=== PATIENT | male | born 1945 | race Caucasian/White ===

== ENCOUNTER → 2019-08-22 | Outpatient (CLI) | payer MEDICARE | LOC: M LABSMTC 10:41 | PROVIDERS: ATTEND Family Medicine | DX: Z11.59 Encounter for screening for other viral diseases (principal); Z20.828 Contact with and (suspected) exposure to other viral communicable diseases ==

== ENCOUNTER → 2023-03-13 | Outpatient (REF) | payer MEDICARE ==
[~2023-03-13] MED LIST: ASPI81CH33 PO; ATOR1TAB21 PO; ATOR80TA59 PO; CEFD300CAP PO; PROBCAP14 PO; TAMS1CAP17 PO; ZOLO100T PO
[2023-03-13 17:19] LABS: APPEARANCE, URINE CLEAR (CLEAR); BACTERIA, URINE AUTO NEGATIVE (NEGATIVE); BILIRUBIN, URINE AUTO NEGATIVE (NEGATIVE); BLOOD, URINE BLOOD NEGATIVE (NEGATIVE); COLOR, URINE YELLOW (YELLOW); GLUCOSE, URINE (UA) AUTO NEGATIVE (NEGATIVE); KETONE, URINE AUTO TRACE mg/dL (NEGATIVE); LEUKOCYTE ESTERASE, URINE AUTO 1+ (NEGATIVE); MUCUS, URINE SMALL (NEGATIVE); NITRITE, URINE AUTO NEGATIVE (NEGATIVE); PROTEIN, URINE AUTO NEGATIVE (NEGATIVE); RBC, URINE AUTO 2 /HPF (0-3); SPECIFIC GRAVITY URINE AUTO 1.018 (1.002-1.035); SQUAMOUS EPITHELIAL CELL UR AU 0 /HPF (0-6); WBC, URINE AUTO 2 /HPF (0-3)
== END ==
LOC: M SMT 15:53
PROVIDERS: ATTEND Nurse Practitioner Family
DX: R31.0 Gross hematuria (principal)

== ENCOUNTER → 2023-04-08 | Outpatient (REF) | payer MEDICARE | LOC: M LABSMT 15:41 | PROVIDERS: ATTEND Urology | DX: R31.0 Gross hematuria (principal) ==

== ENCOUNTER 2023-04-21 16:45 | Emergency (ER) | payer MEDICARE ==
[~2023-04-21] VITALS: Ht 170.2 cm; Wt 51.2 kg
[2023-04-21 17:44] LABS: BASO # 0.1 10^3/uL (0.0-0.2); BASO % 1.5 % (0.0-1.0); EOS # 0.3 10^3/uL (0.0-0.5); EOS % 6.1 % (0.0-3.0); HEMATOCRIT 37.7 % (42.0-52.0); HEMOGLOBIN 12.2 g/dl (13.5-17.5); LYMPH # 0.9 10^3/uL (1.5-5.0); LYMPH % 20.4 % (24.0-44.0); MEAN CORPUSCULAR HEMOGLOBIN 29.8 pg (27.0-33.0); MEAN CORPUSCULAR HGB CONC 32.4 g/dl (32.0-36.5); MEAN CORPUSCULAR VOLUME 92.2 fl (80.0-96.0); MONO # 1.4 10^3/uL (0.0-0.8); MONO % 30.9 % (2.0-8.0); NEUTROPHILS # 1.8 10^3/uL (1.5-8.5); NEUTROPHILS % 40.2 % (36.0-66.0); RED BLOOD COUNT 4.09 10^6/uL (4.30-6.10); WHITE BLOOD COUNT 4.6 10^3/uL (4.0-10.0)
[2023-04-21] MEDS ORDERED: FINA5TAB2 (17:46)
[2023-04-21] MEDS ORDERED: FLOM0.4C39 PO (17:46)
[2023-04-21] MEDS ORDERED: FLUO20CA22 (17:46)
[2023-04-21] MEDS ORDERED: LOSA25TA13 (17:46)
[2023-04-21 17:49] LABS: PLATELET COUNT, AUTOMATED 88 10^3/uL (150-450)
[2023-04-21 18:15] LABS: BLOOD UREA NITROGEN 18 MG/DL (9-23); CALCIUM LEVEL 7.8 MG/DL (8.3-10.6); CARBON DIOXIDE LEVEL 30 MMOL/L (20-31); CHLORIDE LEVEL 105 MMOL/L (98-107); CREATININE FOR GFR 0.85 MG/DL (0.70-1.30); GLOMERULAR FILTRATION RATE > 60.0 (>42); GLUCOSE, FASTING 93 MG/DL (74-106); POTASSIUM SERUM 3.5 MMOL/L (3.5-5.1); SODIUM LEVEL 140 MMOL/L (136-145)
[2023-04-21] MEDS ORDERED: ISOVUE-370 76% 100ML VIAL As Ordered ONE (19:25)
[2023-04-21] MEDS ORDERED: ASPIRIN 81MG CHEW TABLET PO ONE (19:25)
[2023-04-21 19:31] LABS: INR 1.09; PROTHROMBIN TIME 13.8 SECONDS (12.5-14.5)
[2023-04-21 19:32] LABS: PARTIAL THROMBOPLASTIN TIME 35.3 SECONDS (24.8-34.2)
[2023-04-21 19:43] LABS: CK-MB VALUE MASS 1.4 NG/ML (<3.6)
[2023-04-21 19:44] LABS: MB/CK RELATIVE INDEX 1.52 (< OR =4)
[2023-04-21 22:23] VITALS: O2SAT 97
[2023-04-21 22:40] VITALS: BP 170/84
[2023-04-21] MEDS ORDERED: LOSARTAN 25 MG TAB PO ONE (22:55)
[2023-04-21 22:59] VITALS: TEMP 97.8
[2023-04-21 23:04] VITALS: BP 170/84; O2SAT 96
== END 2023-04-21 23:09 | disposition home or self-care (01) ==
LOC: M ED 16:45 → EDSEX 16:45 → EDBD 16:45 → M ED 23:09
DX: R42 Dizziness and giddiness (principal); Z87.440 Personal history of urinary (tract) infections; Z86.73 Personal history of transient ischemic attack (TIA), and cerebral infarction without residual deficits; H91.90 Unspecified hearing loss, unspecified ear; F17.200 Nicotine dependence, unspecified, uncomplicated; Z79.82 Long term (current) use of aspirin; Z79.899 Other long term (current) drug therapy
CPT/HCPCS: 70450; 70496; 70498; 71045; 72125; 80048; 81001; 82550; 82553; 84484; 85025; 85049; 85055; 85610; 85730; 87040; 87486; 87581; 87633; 87798; 93005; 93041; 94760; 99285; Q9967

== ENCOUNTER 2024-01-06 12:03 | Day surgery (SDC) | payer MEDICARE ==
[~2024-01-06] VITALS: Ht 170.2 cm; Wt 60.8 kg
[~2024-01-06 12:03] MED LIST changes: +ALFU10TA23 PO; +FINA5TAB2 PO; +FLOM0.4C39 PO; +FLUO-365 PO; +LOSA25TA13 PO; +LOSA50TA28 PO; +METF500T13 PO; +METO1TAB87 PO; +MIRT1TAB PO; +PHENYLEPHRINE 10% OPHTH SOL 5ML OD PRN; +SERT50TA29 PO; +TREL1AER INH
[2024-01-06] MEDS: LIDOCAINE 3.5 % 1ML OPHTH TOPICAL GEL OU ONE (12:20)
[2024-01-06] MEDS: TROPICAMIDE 1% OPHTH SOLN 15ML OD SCH (12:20)
[2024-01-06] MEDS: ATROPINE SULFATE 1% OPHTH SOLN 2ML BTL OD SCH (12:20)
[2024-01-06] MEDS: OFLOXACIN 0.3 % (OCUFLOX) OPTH SOL 5ML OD ONE (12:20)
[2024-01-06] MEDS: PHENYLEPHRINE 2.5% OPHTH SOL 2ML OD SCH (12:20)
[2024-01-06] MEDS ORDERED: fentaNYL 100 MCG/2 ML INJECTION As Ordered ONE (12:53)
[2024-01-06] MEDS ORDERED: MIDAZOLAM INJ 2MG/2ML VIAL As Ordered ONE (12:53)
[2024-01-06] MEDS: LIDOCAINE 1% SDV 5ML VIAL As Ordered ONE (12:56)
[2024-01-06] MEDS: BSS IRRIG/VANCO(10MG)/TOBRA(5MG)/EPINEPH(1:1000-0.5CC)500ML BAG-ORONLY As Ordered ONE (12:56)
[2024-01-06] MEDS: CEFUROXIME 1MG/0.1ML INTRACAMERAL INJ As Ordered ONE (12:57)
[2024-01-06 13:10] VITALS: BP 151/84; TEMP 97.6; O2SAT 96
== END 2024-01-06 13:35 | disposition home or self-care (01) ==
LOC: M SDC 12:03
PROVIDERS: ATTEND Ophthalmology
DX: H25.11 Age-related nuclear cataract, right eye (principal); H21.81 Floppy iris syndrome; I25.10 Atherosclerotic heart disease of native coronary artery without angina pectoris; I10 Essential (primary) hypertension; Z86.73 Personal history of transient ischemic attack (TIA), and cerebral infarction without residual deficits; J44.9 Chronic obstructive pulmonary disease, unspecified; R32 Unspecified urinary incontinence; F32.A Depression, unspecified; E78.00 Pure hypercholesterolemia, unspecified; Z95.1 Presence of aortocoronary bypass graft; Z79.899 Other long term (current) drug therapy; Z79.82 Long term (current) use of aspirin; Z79.84 Long term (current) use of oral hypoglycemic drugs; Z91.51 Personal history of suicidal behavior; Z87.891 Personal history of nicotine dependence
CPT/HCPCS: 66982; J0697; J2250; J3010; V2632

== ENCOUNTER 2024-02-17 11:23 | Day surgery (SDC) | payer MEDICARE ==
[~2024-02-17] VITALS: Ht 170.2 cm; Wt 61.9 kg
[~2024-02-17 11:23] MED LIST changes: -PHENYLEPHRINE 10% OPHTH SOL 5ML OD PRN; +PHENYLEPHRINE 10% OPHTH SOL 5ML OS PRN
[2024-02-17] MEDS: ATROPINE SULFATE 1% OPHTH SOLN 2ML BTL OS SCH (13:03)
[2024-02-17] MEDS: TROPICAMIDE 1% OPHTH SOLN 15ML OS SCH (13:03)
[2024-02-17] MEDS: LIDOCAINE 3.5 % 1ML OPHTH TOPICAL GEL OU ONE (13:03)
[2024-02-17] MEDS: PHENYLEPHRINE 2.5% OPHTH SOL 2ML OS SCH (13:03)
[2024-02-17] MEDS: OFLOXACIN 0.3 % (OCUFLOX) OPTH SOL 5ML OS ONE (13:03)
[2024-02-17] MEDS ORDERED: fentaNYL 100 MCG/2 ML INJECTION As Ordered ONE (13:21)
[2024-02-17] MEDS: BSS IRRIG/VANCO(10MG)/TOBRA(5MG)/EPINEPH(1:1000-0.5CC)500ML BAG-ORONLY As Ordered ONE (13:22)
[2024-02-17] MEDS: CEFUROXIME 1MG/0.1ML INTRACAMERAL INJ As Ordered ONE (13:22)
[2024-02-17] MEDS: LIDOCAINE 1% SDV 5ML VIAL As Ordered ONE (13:22)
[2024-02-17 13:38] VITALS: BP 191/95; TEMP 97.3; O2SAT 98
== END 2024-02-17 14:07 | disposition home or self-care (01) ==
LOC: M SDC 11:23
PROVIDERS: ATTEND Ophthalmology
DX: H25.12 Age-related nuclear cataract, left eye (principal); E11.9 Type 2 diabetes mellitus without complications; I25.10 Atherosclerotic heart disease of native coronary artery without angina pectoris; Z95.5 Presence of coronary angioplasty implant and graft; I69.398 Other sequelae of cerebral infarction; Z87.891 Personal history of nicotine dependence; Z79.899 Other long term (current) drug therapy; Z98.41 Cataract extraction status, right eye
CPT/HCPCS: 66984; J0697; J3010; V2632

== ENCOUNTER 2024-03-28 10:57 | Observation (INO) | payer MEDICARE ==
[~2024-03-28] VITALS: Ht 170.2 cm; Wt 64.2 kg
[~2024-03-28 10:57] MED LIST changes: -PHENYLEPHRINE 10% OPHTH SOL 5ML OS PRN
[2024-03-28] MEDS: LIDOCAINE 2% 5ML JELLY UROJET TOP ONE (11:10)
[2024-03-28 11:28] LABS: HEMATOCRIT 36.6 % (42.0-52.0); HEMOGLOBIN 11.6 g/dl (13.5-17.5); MEAN CORPUSCULAR HEMOGLOBIN 29.1 pg (27.0-33.0); MEAN CORPUSCULAR HGB CONC 31.7 g/dl (32.0-36.5); PLATELET COUNT, AUTOMATED 109 10^3/uL (150-450); RED BLOOD COUNT 3.98 10^6/uL (4.30-6.10); WHITE BLOOD COUNT 10.3 10^3/uL (4.0-10.0)
[2024-03-28 11:42] LABS: VENOUS HCO3 25.6 MMOL/L (23.0-27.0); VENOUS O2 SATURATION 73.6 % (60.0-80.0); VENOUS PARTIAL PRESSURE CO2 45.3 mmHg (38.0-50.0); VENOUS PARTIAL PRESSURE O2 40.9 mmHg (30.0-50.0); VENOUS STANDARD HCO3 24.1 MMOL/L
[2024-03-28] MEDS: NS 500 ML IV ONE (11:50)
[2024-03-28 11:54] LABS: CK-MB VALUE MASS < 1.0 NG/ML (<3.6)
[2024-03-28 11:55] LABS: ETHYL ALCOHOL (ETHANOL) 0.004 % (0.000-0.010)
[2024-03-28 11:56] LABS: SALICYLATE LEVEL < 3.0 MG/DL (<30)
[2024-03-28 11:57] LABS: ALBUMIN 2.3 G/DL (3.2-5.2); ALKALINE PHOSPHATASE 118 U/L (40-129); ALT/SGPT 22 U/L (7.0-40); AST/SGOT 27 U/L (<34); BILIRUBIN,DIRECT 0.4 MG/DL (<0.4); BILIRUBIN,TOTAL 0.9 MG/DL (0.3-1.2); BLOOD UREA NITROGEN 19 MG/DL (9-23); CALCIUM LEVEL 8.3 MG/DL (8.3-10.6); CARBON DIOXIDE LEVEL 27 MMOL/L (20-31); CHLORIDE LEVEL 110 MMOL/L (98-107); CPK CREATINE PHOSPHOKINASE 56 U/L (46-171); GLOMERULAR FILTRATION RATE > 60.0 (>42); GLUCOSE, FASTING 154 MG/DL (74-106); MAGNESIUM LEVEL 1.9 MG/DL (1.8-2.4); MB/CK RELATIVE INDEX 1.78 (< OR =4); POTASSIUM SERUM 3.2 MMOL/L (3.5-5.1); SODIUM LEVEL 142 MMOL/L (136-145); TOTAL PROTEIN 5.7 G/DL (5.7-8.2)
[2024-03-28 11:58] LABS: ATYPICAL LYMPH 1 % (0-5); LYMPHOCYTES 6 % (16-44); MONOCYTES 32 % (0-5); NEUTROPHILS 58 % (28-66); THYROID STIMULATING HORMONE 1.093 uIU/ML (0.55-4.78)
[2024-03-28 11:59] LABS: ANISOCYTOSIS 1+
[2024-03-28 12:00] LABS: HYPOCHROMASIA 1+; PLATELET ESTIMATE DECREASED (NORMAL)
[2024-03-28] MEDS ORDERED: ISOVUE-370 76% 100ML VIAL As Ordered ONE (12:51)
[2024-03-28] MEDS: PIPERACILLIN/TAZOBACTAM SOD 4.5 GM in DEXTROSE 5% (D5W) ADV/MINI-BAG 50 ML IV ONE (13:15)
[2024-03-28 13:22] LABS: CK-MB VALUE MASS < 1.0 NG/ML (<3.6)
[2024-03-28 13:38] LABS: CPK CREATINE PHOSPHOKINASE 53 U/L (46-171); MB/CK RELATIVE INDEX 1.88 (< OR =4)
[2024-03-28] MEDS ORDERED: METO25TA4 PO (14:58)
[2024-03-28] MEDS ORDERED: ECOT81TA5 PO (14:58)
[2024-03-28] MEDS ORDERED: CLOP75TA2 PO (14:58)
[2024-03-28] MEDS ORDERED: HYDR-4571 PO (14:59)
[2024-03-28] MEDS ORDERED: HOME MED LIST COMPLETE! XX SCH (15:00)
[2024-03-28] MEDS ORDERED: DEXTROSE 50% 50ML SYRINGE IV PRN (16:05)
[2024-03-28] MEDS ORDERED: GLUCOSE 4 GM CHEW PO PRN (16:05)
[2024-03-28] MEDS ORDERED: GLUCAGON INJ 1MG VIAL SC PRN (16:05)
[2024-03-28] MEDS: LR 1,000 ML IV ONE (17:43)
[2024-03-28] MEDS: POTASSIUM CHLORIDE 10MEQ SR TABLET PO ONE (17:44)
[2024-03-28] MEDS: INSULIN LISPRO (NovoLOG) PER UNIT SC SCH ×2 (18:35→21:00)
[2024-03-28] MEDS: SYMBICORT 80/4.5MCG INHALER 6GM INH SCH (19:41)
[2024-03-28] MEDS: METOPROLOL TART 25 MG TABLET PO SCH (21:15)
[2024-03-28 21:30] VITALS: BP 157/85; TEMP 98.1; O2SAT 93
[2024-03-28 22:58] VITALS: O2SAT 93
[2024-03-29 04:23] VITALS: BP 137/71; TEMP 97.3; O2SAT 87
[2024-03-29 06:27] LABS: MEAN CORPUSCULAR HEMOGLOBIN 29.7 pg (27.0-33.0); MEAN CORPUSCULAR HGB CONC 32.8 g/dl (32.0-36.5); MEAN CORPUSCULAR VOLUME 90.6 fl (80.0-96.0); PLATELET COUNT, AUTOMATED 120 10^3/uL (150-450); WHITE BLOOD COUNT 8.2 10^3/uL (4.0-10.0)
[2024-03-29 06:29] LABS: BLOOD UREA NITROGEN 15 MG/DL (9-23); CALCIUM LEVEL 8.1 MG/DL (8.3-10.6); CARBON DIOXIDE LEVEL 25 MMOL/L (20-31); CHLORIDE LEVEL 112 MMOL/L (98-107); CREATININE FOR GFR 0.78 MG/DL (0.70-1.30); GLOMERULAR FILTRATION RATE > 60.0 (>42); GLUCOSE, FASTING 110 MG/DL (74-106); HEMOGLOBIN 9.5 g/dl (13.5-17.5); POTASSIUM SERUM 3.7 MMOL/L (3.5-5.1); SODIUM LEVEL 143 MMOL/L (136-145)
[2024-03-29] MEDS: TIOTROPIUM INHALER/CAPSULE (SPIRIVA) INH SCH (07:52)
[2024-03-29] MEDS: LIDOCAINE 5% (LIDODERM) PATCH TD SCH (09:00)
[2024-03-29] MEDS: FLUoxetine 20MG CAP PO SCH (10:17)
[2024-03-29] MEDS: SERTRALINE 100 MG TAB PO SCH (10:17)
[2024-03-29] MEDS: ATORVASTATIN 20 MG TAB PO SCH (10:17)
[2024-03-29] MEDS: ASPIRIN 81MG ENTERIC TABLET PO SCH (10:18)
[2024-03-29] MEDS: FINASTERIDE 5MG TAB PO SCH (10:18)
[2024-03-29] MEDS: LOSARTAN 25 MG TAB PO SCH (10:18)
[2024-03-29] MEDS: CLOPIDOGREL 75 MG TAB PO SCH (10:18)
[2024-03-29] MEDS: ENOXAPARIN 40MG/0.4ML SYRINGE (J1650 PER 10MG) SC SCH (10:19)
[2024-03-29 12:00] VITALS: BP 129/70; TEMP 97.9; O2SAT 90
[2024-03-29 19:53] VITALS: BP 135/72; TEMP 97.3; O2SAT 89
[2024-03-30 04:14] VITALS: BP 140/73; TEMP 97.5; O2SAT 89
[2024-03-30 06:38] LABS: HEMOGLOBIN 9.8 g/dl (13.5-17.5); MEAN CORPUSCULAR HEMOGLOBIN 28.5 pg (27.0-33.0); MEAN CORPUSCULAR HGB CONC 31.6 g/dl (32.0-36.5); MEAN CORPUSCULAR VOLUME 90.1 fl (80.0-96.0); PLATELET COUNT, AUTOMATED 157 10^3/uL (150-450); RED BLOOD COUNT 3.44 10^6/uL (4.30-6.10); WHITE BLOOD COUNT 7.3 10^3/uL (4.0-10.0)
[2024-03-30 07:27] LABS: ALKALINE PHOSPHATASE 154 U/L (40-129); ALT/SGPT 67 U/L (7.0-40); AST/SGOT 78 U/L (<34); BILIRUBIN,TOTAL 0.8 MG/DL (0.3-1.2); BLOOD UREA NITROGEN 14 MG/DL (9-23); CALCIUM LEVEL 7.8 MG/DL (8.3-10.6); CARBON DIOXIDE LEVEL 23 MMOL/L (20-31); CHLORIDE LEVEL 110 MMOL/L (98-107); CREATININE FOR GFR 0.78 MG/DL (0.70-1.30); GLOMERULAR FILTRATION RATE > 60.0 (>42); GLUCOSE, FASTING 96 MG/DL (74-106); POTASSIUM SERUM 3.4 MMOL/L (3.5-5.1); SODIUM LEVEL 141 MMOL/L (136-145); TOTAL PROTEIN 5.4 G/DL (5.7-8.2)
[2024-03-30] MEDS: FUROSEMIDE 40MG/4ML VIAL IV ONE (09:18)
[2024-03-30 12:00] VITALS: BP 135/70; TEMP 97.7; O2SAT 92
[2024-03-30] MEDS: POTASSIUM CHLORIDE 10MEQ SR TABLET PO ONE (17:45)
[2024-03-30 20:20] VITALS: BP 151/84; TEMP 98.4; O2SAT 92
[2024-03-31 04:05] VITALS: BP 160/86; TEMP 98.1; O2SAT 98
[2024-03-31 07:03] LABS: HEMATOCRIT 34.5 % (42.0-52.0); HEMOGLOBIN 11.3 g/dl (13.5-17.5); MEAN CORPUSCULAR HGB CONC 32.8 g/dl (32.0-36.5); MEAN CORPUSCULAR VOLUME 88.5 fl (80.0-96.0); PLATELET COUNT, AUTOMATED 229 10^3/uL (150-450); WHITE BLOOD COUNT 9.4 10^3/uL (4.0-10.0)
[2024-03-31 07:35] LABS: ALBUMIN 2.2 G/DL (3.2-5.2); ALKALINE PHOSPHATASE 177 U/L (40-129); ALT/SGPT 67 U/L (7.0-40); AST/SGOT 55 U/L (<34); BLOOD UREA NITROGEN 17 MG/DL (9-23); CALCIUM LEVEL 8.3 MG/DL (8.3-10.6); CARBON DIOXIDE LEVEL 24 MMOL/L (20-31); CHLORIDE LEVEL 108 MMOL/L (98-107); CREATININE FOR GFR 0.79 MG/DL (0.70-1.30); GLOMERULAR FILTRATION RATE > 60.0 (>42); GLUCOSE, FASTING 109 MG/DL (74-106); POTASSIUM SERUM 3.8 MMOL/L (3.5-5.1); SODIUM LEVEL 141 MMOL/L (136-145)
[2024-03-31] MEDS: FUROSEMIDE 20 MG TAB PO SCH (08:25)
[2024-03-31] MEDS ORDERED: FURO20TA2 PO (18:49)
[2024-04-01 04:09] VITALS: BP 146/76; TEMP 97.7; O2SAT 94
[2024-04-01 05:53] LABS: HEMATOCRIT 32.7 % (42.0-52.0); HEMOGLOBIN 10.6 g/dl (13.5-17.5); MEAN CORPUSCULAR HEMOGLOBIN 28.6 pg (27.0-33.0); MEAN CORPUSCULAR HGB CONC 32.4 g/dl (32.0-36.5); MEAN CORPUSCULAR VOLUME 88.1 fl (80.0-96.0); PLATELET COUNT, AUTOMATED 261 10^3/uL (150-450); RED BLOOD COUNT 3.71 10^6/uL (4.30-6.10); WHITE BLOOD COUNT 10.9 10^3/uL (4.0-10.0)
[2024-04-01 06:26] LABS: ALBUMIN 2.2 G/DL (3.2-5.2); ALKALINE PHOSPHATASE 175 U/L (40-129); ALT/SGPT 78 U/L (7.0-40); AST/SGOT 62 U/L (<34); BILIRUBIN,TOTAL 0.8 MG/DL (0.3-1.2); BLOOD UREA NITROGEN 18 MG/DL (9-23); CALCIUM LEVEL 8.1 MG/DL (8.3-10.6); CARBON DIOXIDE LEVEL 23 MMOL/L (20-31); CHLORIDE LEVEL 106 MMOL/L (98-107); CREATININE FOR GFR 0.77 MG/DL (0.70-1.30); GLOMERULAR FILTRATION RATE > 60.0 (>42); GLUCOSE, FASTING 166 MG/DL (74-106); POTASSIUM SERUM 3.6 MMOL/L (3.5-5.1); SODIUM LEVEL 139 MMOL/L (136-145); TOTAL PROTEIN 5.8 G/DL (5.7-8.2)
[2024-04-01 08:33] VITALS: BP 123/71
== END 2024-04-01 09:15 | disposition home health service (06) ==
LOC: M ED 10:57 → EDBD 10:57 → M ED INP 15:55 → M MS5PR 20:55
PROVIDERS: ADMIT Internal Medicine; ATTEND Internal Medicine
DX: R53.1 Weakness (principal); R41.3 Other amnesia; I50.32 Chronic diastolic (congestive) heart failure; R09.02 Hypoxemia; J44.9 Chronic obstructive pulmonary disease, unspecified; E87.20 Acidosis, unspecified; E86.0 Dehydration; R63.8 Other symptoms and signs concerning food and fluid intake; D72.825 Bandemia; J98.11 Atelectasis; E87.6 Hypokalemia; D69.6 Thrombocytopenia, unspecified; N40.1 Benign prostatic hyperplasia with lower urinary tract symptoms; E11.9 Type 2 diabetes mellitus without complications; F32.A Depression, unspecified; I25.10 Atherosclerotic heart disease of native coronary artery without angina pectoris; S22.080A Wedge compression fracture of T11-T12 vertebra, initial encounter for closed fracture; X58.XXXA Exposure to other specified factors, initial encounter; Y92.9 Unspecified place or not applicable; Y93.9 Activity, unspecified; Y99.9 Unspecified external cause status; Z95.828 Presence of other vascular implants and grafts; Z95.1 Presence of aortocoronary bypass graft; Z87.891 Personal history of nicotine dependence; Z79.899 Other long term (current) drug therapy; Z79.82 Long term (current) use of aspirin; Z79.02 Long term (current) use of antithrombotics/antiplatelets; Z79.84 Long term (current) use of oral hypoglycemic drugs; Z79.51 Long term (current) use of inhaled steroids
CPT/HCPCS: 36415; 51701; 70450; 71045; 71275; 72128; 74177; 80047; 80048; 80053; 80076; 80143; 81001; 82077; 82140; 82550; 82553; 82803; 83605; 83735; 83880; 84145; 84443; 84484; 85025; 85027; 87040; 87486; 87581; 87633; 87798; 92526; 92610; 93005; 93041; 94640; 94664; 94760; 96361; 96365; 96372; 96375; 97116; 97161; 97165; 97530; 99285; G0378; J1650; J1815; J1940; J2543; Q9967

== ENCOUNTER 2024-08-19 20:23 | Inpatient (IN) | payer MEDICARE ==
[~2024-08-19] VITALS: Ht 170.2 cm; Wt 52.9 kg
[~2024-08-19 20:23] MED LIST changes: +CLOP75TA2 PO; +ECOT81TA5 PO; +FURO20TA2 PO; +HYDR-4571 PO; +METO25TA4 PO
[2024-08-19 21:06] LABS: HEMATOCRIT 36.8 % (42.0-52.0); HEMOGLOBIN 11.9 g/dl (13.5-17.5); MEAN CORPUSCULAR HEMOGLOBIN 28.7 pg (27.0-33.0); MEAN CORPUSCULAR HGB CONC 32.3 g/dl (32.0-36.5); MEAN CORPUSCULAR VOLUME 88.9 fl (80.0-96.0); PLATELET COUNT, AUTOMATED 186 10^3/uL (150-450); RED BLOOD COUNT 4.14 10^6/uL (4.30-6.10); WHITE BLOOD COUNT 23.2 10^3/uL (4.0-10.0)
[2024-08-19 21:31] LABS: ALBUMIN 2.9 G/DL (3.2-5.2); ALKALINE PHOSPHATASE 123 U/L (40-129); ALT/SGPT 19 U/L (7.0-40); AST/SGOT 26 U/L (<34); BILIRUBIN,DIRECT 0.3 MG/DL (<0.4); BILIRUBIN,TOTAL 0.7 MG/DL (0.3-1.2); BLOOD UREA NITROGEN 27 MG/DL (9-23); CALCIUM LEVEL 8.7 MG/DL (8.3-10.6); CARBON DIOXIDE LEVEL 26 MMOL/L (20-31); CHLORIDE LEVEL 106 MMOL/L (98-107); CPK CREATINE PHOSPHOKINASE 385 U/L (46-171); CREATININE FOR GFR 0.95 MG/DL (0.70-1.30); GLOMERULAR FILTRATION RATE > 60.0 (>42); GLUCOSE, FASTING 188 MG/DL (74-106); MB/CK RELATIVE INDEX 0.51 (< OR =4); POTASSIUM SERUM 3.8 MMOL/L (3.5-5.1); SODIUM LEVEL 142 MMOL/L (136-145); TOTAL PROTEIN 6.4 G/DL (5.7-8.2)
[2024-08-19 21:39] LABS: ATYPICAL LYMPH 2 % (0-5); LYMPHOCYTES 4 % (16-44); MONOCYTES 10 % (0-5); NEUTROPHILS 84 % (28-66)
[2024-08-19 21:40] LABS: ANISOCYTOSIS 1+; PLATELET ESTIMATE NORMAL (NORMAL)
[2024-08-19] MEDS ORDERED: HYDROmorphone 2 MG TAB PO ONE (22:00)
[2024-08-19] MEDS ORDERED: HYDROMORPHONE HCL 0.5 MG/ 0.5 ML SYRINGE IV PRN (22:00)
[2024-08-19] MEDS: NS (Normal Saline) 0.9% 1,000 ML IV ONE (22:25)
[2024-08-19] MEDS ORDERED: ISOVUE-370 76% 100ML VIAL As Ordered ONE (22:31)
[2024-08-19 22:36] LABS: MB/CK RELATIVE INDEX 0.53 (< OR =4)
[2024-08-19] MEDS: cefTRIAXone SOD 1 GM in DEXTROSE 5% (D5W) ADV/MINI-BAG 50 ML IV ONE (22:59)
[2024-08-19] MEDS: AZITHROMYCIN INJ 500 MG, VIAL MATE ADAPTER 1 EACH in NS 250 ML IV ONE (23:57)
[2024-08-20] MEDS ORDERED: LEVALBUTEROL 1.25 MG 0.5ML CONCENTRATE NEB INH PRN (00:10)
[2024-08-20] MEDS ORDERED: DEXTROSE 50% 50ML SYRINGE IV PRN (00:10)
[2024-08-20] MEDS ORDERED: GLUCOSE 4 GM CHEW PO PRN (00:10)
[2024-08-20] MEDS ORDERED: ACETAMINOPHEN 325 MG TAB PO PRN (00:10)
[2024-08-20] MEDS ORDERED: MAALOX 30 ML SUSP *UDC PO PRN (00:10)
[2024-08-20] MEDS ORDERED: MOM 30ML SUSPENSION UDC PO PRN (00:10)
[2024-08-20] MEDS ORDERED: GLUCAGON INJ 1MG VIAL SC PRN (00:10)
[2024-08-20] MEDS ORDERED: DOXY100T PO (00:16)
[2024-08-20 00:27] LABS: MAGNESIUM LEVEL 1.7 MG/DL (1.8-2.4)
[2024-08-20] MEDS ORDERED: GABA-1171 PO (00:29)
[2024-08-20] MEDS ORDERED: LOSA100T46 PO (00:29)
[2024-08-20] MEDS ORDERED: COLC0.6T47 PO (00:29)
[2024-08-20] MEDS ORDERED: HOME MED LIST COMPLETE! XX SCH (00:35)
[2024-08-20 00:36] LABS: PROCALCITONIN 0.23 ng/ml
[2024-08-20] MEDS: IPRATROPIUM 0.5MG/ALBUTEROL 2.5MG INH SOL UD 3ML INH SCH (01:16)
[2024-08-20 01:57] VITALS: BP 117/70; TEMP 98.4; O2SAT 90
[2024-08-20] MEDS: MAG SULF 1GM/100ML (MAG RUN) 1 GM in IV 1 EA IV ONE (03:22)
[2024-08-20 04:00] VITALS: BP 123/73; TEMP 98.2; O2SAT 92
[2024-08-20] MEDS: INSULIN LISPRO (NovoLOG) PER UNIT SC SCH ×2 (07:30→20:45)
[2024-08-20 08:00] VITALS: BP 122/71; TEMP 97.5; O2SAT 99
[2024-08-20 08:48] LABS: HEMATOCRIT 32.1 % (42.0-52.0); HEMOGLOBIN 10.3 g/dl (13.5-17.5); MEAN CORPUSCULAR HEMOGLOBIN 29.3 pg (27.0-33.0); MEAN CORPUSCULAR HGB CONC 32.1 g/dl (32.0-36.5); MEAN CORPUSCULAR VOLUME 91.5 fl (80.0-96.0); PLATELET COUNT, AUTOMATED 134 10^3/uL (150-450); RED BLOOD COUNT 3.51 10^6/uL (4.30-6.10); WHITE BLOOD COUNT 15.4 10^3/uL (4.0-10.0)
[2024-08-20] MEDS: HEPARIN SOD (PORCINE) 5000UNITS/ML 1ML VIAL/SYRINGE SC SCH (08:54)
[2024-08-20] MEDS: PANTOPRAZOLE 40MG VIAL IV SCH (08:54)
[2024-08-20] MEDS: DOCUSATE SODIUM 100MG CAPSULE PO SCH (08:55)
[2024-08-20] MEDS: predniSONE 20 MG TAB PO SCH (08:55)
[2024-08-20 09:07] LABS: BLOOD UREA NITROGEN 21 MG/DL (9-23); CARBON DIOXIDE LEVEL 28 MMOL/L (20-31); CHLORIDE LEVEL 111 MMOL/L (98-107); CREATININE FOR GFR 0.87 MG/DL (0.70-1.30); GLOMERULAR FILTRATION RATE > 60.0 (>42); GLUCOSE, FASTING 119 MG/DL (74-106); POTASSIUM SERUM 3.5 MMOL/L (3.5-5.1); SODIUM LEVEL 146 MMOL/L (136-145)
[2024-08-20] MEDS: LR 1,000 ML IV SCH (11:30)
[2024-08-20 11:40] LABS: VENOUS BASE EXCESS 0.2 (-2.0-2.0); VENOUS HCO3 24.3 MMOL/L (23.0-27.0); VENOUS O2 SATURATION 99.4 % (60.0-80.0); VENOUS PARTIAL PRESSURE CO2 37.4 mmHg (38.0-50.0); VENOUS PARTIAL PRESSURE O2 205.1 mmHg (30.0-50.0); VENOUS PH 7.431 UNITS (7.330-7.430); VENOUS STANDARD HCO3 24.7 MMOL/L; VENOUS TOTAL CO2 25.5 MMOL/L (24.0-28.0)
[2024-08-20 12:00] VITALS: BP 119/64; TEMP 98.2; O2SAT 95
[2024-08-20 16:00] VITALS: BP 120/66; TEMP 97.7; O2SAT 94
[2024-08-20] MEDS ORDERED: GABAPENTIN 100 MG CAP PO PRN (16:00)
[2024-08-20 19:45] VITALS: BP 108/67; TEMP 97.5; O2SAT 95
[2024-08-20] MEDS: SYMBICORT 160/4.5MCG INHALER 6GM INH SCH (19:50)
[2024-08-20] MEDS: ATORVASTATIN 20 MG TAB PO SCH (20:43)
[2024-08-20] MEDS: COLCHICINE 0.6 MG TABLET PO SCH (20:43)
[2024-08-20] MEDS: CLOPIDOGREL 75 MG TAB PO SCH (20:43)
[2024-08-20] MEDS: SERTRALINE 100 MG TAB PO SCH (20:45)
[2024-08-20] MEDS: cefTRIAXone SOD 2 GM in DEXTROSE 5% (D5W) ADV/MINI-BAG 50 ML IV SCH (22:17)
[2024-08-21] MEDS ORDERED: AZITHROMYCIN INJ 500 MG, VIAL MATE ADAPTER 1 EACH in D5W 250 ML IV SCH
[2024-08-21 04:01] VITALS: BP 101/54; TEMP 98.2; O2SAT 88
[2024-08-21 06:28] LABS: HEMOGLOBIN 8.8 g/dl (13.5-17.5); MEAN CORPUSCULAR HEMOGLOBIN 28.9 pg (27.0-33.0); MEAN CORPUSCULAR HGB CONC 31.4 g/dl (32.0-36.5); MEAN CORPUSCULAR VOLUME 91.8 fl (80.0-96.0); PLATELET COUNT, AUTOMATED 134 10^3/uL (150-450); RED BLOOD COUNT 3.05 10^6/uL (4.30-6.10); WHITE BLOOD COUNT 12.3 10^3/uL (4.0-10.0)
[2024-08-21 06:46] LABS: BLOOD UREA NITROGEN 24 MG/DL (9-23); CARBON DIOXIDE LEVEL 27 MMOL/L (20-31); CHLORIDE LEVEL 111 MMOL/L (98-107); CREATININE FOR GFR 0.86 MG/DL (0.70-1.30); GLOMERULAR FILTRATION RATE > 60.0 (>42); GLUCOSE, FASTING 119 MG/DL (74-106); POTASSIUM SERUM 3.4 MMOL/L (3.5-5.1); SODIUM LEVEL 148 MMOL/L (136-145)
[2024-08-21 08:00] VITALS: BP 102/62; TEMP 98.1; O2SAT 93
[2024-08-21] MEDS: TIOTROPIUM BROM 2.5MCG/ACTUATION 4GM INH IH SCH (08:16)
[2024-08-21] MEDS: D5W 500 ML IV SCH (09:18)
[2024-08-21 12:00] VITALS: BP 114/60; TEMP 98.4; O2SAT 94
[2024-08-21 16:00] VITALS: BP 114/59; TEMP 98.2; O2SAT 95
[2024-08-21 19:44] VITALS: BP 136/69; TEMP 97.5; O2SAT 95
[2024-08-21] MEDS: LOSARTAN 50MG TABLET PO SCH (21:00)
[2024-08-21 23:39] VITALS: BP 119/58; TEMP 98.1; O2SAT 96
[2024-08-22 04:00] VITALS: BP 140/84; TEMP 97.9; O2SAT 98
[2024-08-22 07:02] LABS: HEMATOCRIT 29.7 % (42.0-52.0); HEMOGLOBIN 9.1 g/dl (13.5-17.5); MEAN CORPUSCULAR HEMOGLOBIN 28.6 pg (27.0-33.0); MEAN CORPUSCULAR HGB CONC 30.6 g/dl (32.0-36.5); MEAN CORPUSCULAR VOLUME 93.4 fl (80.0-96.0); PLATELET COUNT, AUTOMATED 157 10^3/uL (150-450); RED BLOOD COUNT 3.18 10^6/uL (4.30-6.10); WHITE BLOOD COUNT 8.4 10^3/uL (4.0-10.0)
[2024-08-22 07:15] VITALS: BP 127/61; TEMP 97.9; O2SAT 97
[2024-08-22 07:27] LABS: BLOOD UREA NITROGEN 18 MG/DL (9-23); CALCIUM LEVEL 7.9 MG/DL (8.3-10.6); CARBON DIOXIDE LEVEL 28 MMOL/L (20-31); CHLORIDE LEVEL 110 MMOL/L (98-107); CREATININE FOR GFR 0.84 MG/DL (0.70-1.30); GLOMERULAR FILTRATION RATE > 60.0 (>42); GLUCOSE, FASTING 102 MG/DL (74-106); POTASSIUM SERUM 3.5 MMOL/L (3.5-5.1); SODIUM LEVEL 146 MMOL/L (136-145)
[2024-08-22 08:00] VITALS: BP 128/63; TEMP 98.2; O2SAT 100
[2024-08-22 20:06] VITALS: BP 138/68; TEMP 99; O2SAT 93
[2024-08-23 05:01] VITALS: BP 134/89; TEMP 98.4; O2SAT 97
[2024-08-23 07:26] LABS: HEMATOCRIT 29.2 % (42.0-52.0); HEMOGLOBIN 9.2 g/dl (13.5-17.5); MEAN CORPUSCULAR HEMOGLOBIN 28.7 pg (27.0-33.0); MEAN CORPUSCULAR HGB CONC 31.5 g/dl (32.0-36.5); PLATELET COUNT, AUTOMATED 185 10^3/uL (150-450); RED BLOOD COUNT 3.21 10^6/uL (4.30-6.10)
[2024-08-23 07:49] LABS: BLOOD UREA NITROGEN 19 MG/DL (9-23); CALCIUM LEVEL 8.4 MG/DL (8.3-10.6); CARBON DIOXIDE LEVEL 28 MMOL/L (20-31); CHLORIDE LEVEL 111 MMOL/L (98-107); CREATININE FOR GFR 0.84 MG/DL (0.70-1.30); GLOMERULAR FILTRATION RATE > 60.0 (>42); GLUCOSE, FASTING 107 MG/DL (74-106); POTASSIUM SERUM 3.4 MMOL/L (3.5-5.1); SODIUM LEVEL 148 MMOL/L (136-145)
[2024-08-23] MEDS: CEFDINIR 300 MG CAP (OMNICEF) PO SCH (16:12)
[2024-08-23] MEDS: D5W/0.2% SODIUM CHLORIDE 1,000 ML IV SCH (18:55)
[2024-08-23 20:00] VITALS: BP 137/88; TEMP 98.8; O2SAT 98
[2024-08-23] MEDS: KCL 10MEQ/100ML SWI (KRUN) 10 MEQ in IV 1 EA IV SCH (20:05)
[2024-08-24 04:24] VITALS: BP 139/85; TEMP 98.5; O2SAT 93
[2024-08-24 06:08] LABS: BLOOD UREA NITROGEN 19 MG/DL (9-23); CALCIUM LEVEL 7.9 MG/DL (8.3-10.6); CARBON DIOXIDE LEVEL 27 MMOL/L (20-31); CHLORIDE LEVEL 107 MMOL/L (98-107); CREATININE FOR GFR 0.88 MG/DL (0.70-1.30); GLOMERULAR FILTRATION RATE > 60.0 (>42); GLUCOSE, FASTING 157 MG/DL (74-106); MAGNESIUM LEVEL 1.8 MG/DL (1.8-2.4); POTASSIUM SERUM 3.3 MMOL/L (3.5-5.1); SODIUM LEVEL 143 MMOL/L (136-145)
[2024-08-24] MEDS ORDERED: IPRATROPIUM 0.5MG/ALBUTEROL 2.5MG INH SOL UD 3ML INH PRN (07:20)
[2024-08-24] MEDS: KCL 10MEQ/100ML SWI (KRUN) 10 MEQ in IV 1 EA IV SCH (08:36)
[2024-08-24] MEDS: POTASSIUM CHLORIDE 10MEQ SR TABLET PO ONE (09:12)
[2024-08-24 09:20] VITALS: O2SAT 93
[2024-08-24 11:09] VITALS: BP 126/70; TEMP 98.6; O2SAT 90
[2024-08-24 13:49] VITALS: BP 140/85; TEMP 98.8; O2SAT 89
[2024-08-24 14:00] LABS: CALCIUM LEVEL 8.3 MG/DL (8.3-10.6); CREATININE FOR GFR 0.84 MG/DL (0.70-1.30); GLOMERULAR FILTRATION RATE 88.7 (>42); POTASSIUM SERUM 4.4 MMOL/L (3.5-5.1)
[2024-08-24 19:48] VITALS: BP 139/70; TEMP 98.2; O2SAT 92
[2024-08-25 04:00] VITALS: BP 160/83; TEMP 98.1; O2SAT 88
[2024-08-25 06:31] LABS: CREATININE FOR GFR 0.91 MG/DL (0.70-1.30); GLOMERULAR FILTRATION RATE 85.7 (>42); POTASSIUM SERUM 3.4 MMOL/L (3.5-5.1)
[2024-08-25] MEDS: predniSONE 20 MG TAB PO SCH (08:26)
[2024-08-25] MEDS: POTASSIUM CHLORIDE 10MEQ SR TABLET PO SCH (10:27)
[2024-08-25 12:30] VITALS: BP 121/61; TEMP 98.8; O2SAT 90
[2024-08-25 19:44] VITALS: BP 128/70; TEMP 97.9; O2SAT 98
[2024-08-26 04:54] VITALS: BP 140/76; TEMP 97.7; O2SAT 94
[2024-08-26 06:57] LABS: CALCIUM LEVEL 8.4 MG/DL (8.3-10.6); CREATININE FOR GFR 0.93 MG/DL (0.70-1.30); GLOMERULAR FILTRATION RATE 83.5 (>42); POTASSIUM SERUM 4.2 MMOL/L (3.5-5.1)
[2024-08-26 10:42] VITALS: BP 142/74; TEMP 97.5; O2SAT 97
[2024-08-26 20:17] VITALS: BP 122/69
[2024-08-27 04:29] VITALS: BP 148/81; TEMP 98.1; O2SAT 92
[2024-08-27 07:59] LABS: CALCIUM LEVEL 8.2 MG/DL (8.3-10.6); CREATININE FOR GFR 0.95 MG/DL (0.70-1.30); GLOMERULAR FILTRATION RATE 81.4 (>42); POTASSIUM SERUM 3.9 MMOL/L (3.5-5.1)
[2024-08-27] MEDS ORDERED: CEFD300CAP PO (10:07)
[2024-08-27] MEDS ORDERED: PROBCAP14 PO (10:09)
[2024-08-27] MEDS ORDERED: PRED10TA2 PO (10:14)
[2024-08-27] MEDS ORDERED: ALBU8.5H INH (10:17)
[2024-08-27] MEDS ORDERED: PRED20TA PO (10:17)
== END 2024-08-27 11:15 | disposition home health service (06) | DRG 871 ==
LOC: M ED 20:23 → M ED INP 23:44 → M MS5PR 08-20 01:50
PROVIDERS: ADMIT Student in an Organized Health Care Education/Training Program; ATTEND Student in an Organized Health Care Education/Training Program
DX: A41.9 Sepsis, unspecified organism (principal); J18.9 Pneumonia, unspecified organism; G93.41 Metabolic encephalopathy; J44.0 Chronic obstructive pulmonary disease with (acute) lower respiratory infection; I50.32 Chronic diastolic (congestive) heart failure; E87.0 Hyperosmolality and hypernatremia; M48.54XA Collapsed vertebra, not elsewhere classified, thoracic region, initial encounter for fracture; J44.1 Chronic obstructive pulmonary disease with (acute) exacerbation; I25.10 Atherosclerotic heart disease of native coronary artery without angina pectoris; I71.43 Infrarenal abdominal aortic aneurysm, without rupture; F32.A Depression, unspecified; I11.0 Hypertensive heart disease with heart failure; N40.1 Benign prostatic hyperplasia with lower urinary tract symptoms; R32 Unspecified urinary incontinence; F03.90 Unspecified dementia, unspecified severity, without behavioral disturbance, psychotic disturbance, mood disturbance, and anxiety; E11.51 Type 2 diabetes mellitus with diabetic peripheral angiopathy without gangrene; D69.6 Thrombocytopenia, unspecified; R54 Age-related physical debility; E87.6 Hypokalemia; Z79.82 Long term (current) use of aspirin; Z79.02 Long term (current) use of antithrombotics/antiplatelets; Z79.84 Long term (current) use of oral hypoglycemic drugs; Z79.899 Other long term (current) drug therapy

== ENCOUNTER 2025-01-24 18:23 | Inpatient (IN) | payer MEDICARE ==
[~2025-01-24] VITALS: Ht 170.2 cm; Wt 56.2 kg
[~2025-01-24 18:23] MED LIST changes: +ALBU8.5H INH; +COLC0.6T53 PO; +DOXY100T PO; -FLOM0.4C39 PO; +GABA-1171 PO; +LOSA100T46 PO; +PRED10TA2 PO; +PRED20TA PO; +TAMS-18 PO
[2025-01-24] MEDS ORDERED: CLOP75TA99 PO (19:38)
[2025-01-24] MEDS ORDERED: MED REC COMMENT (19:38)
[2025-01-24] MEDS ORDERED: LOSA50TA28 PO (19:38)
[2025-01-24] MEDS ORDERED: HOME MED LIST COMPLETE! XX SCH (19:40)
[2025-01-24 20:11] LABS: BASO # 0.0 10^3/uL (0.0-0.2); BASO % 0.4 % (0.0-1.0); EOS # 0.0 10^3/uL (0.0-0.5); EOS % 0.3 % (0.0-3.0); LYMPH # 0.9 10^3/uL (1.5-5.0); LYMPH % 9.8 % (24.0-44.0); NEUTROPHILS # 4.8 10^3/uL (1.5-8.5); NEUTROPHILS % 52.3 % (36.0-66.0)
[2025-01-24 20:34] LABS: MONO # 3.3 10^3/uL (0.0-0.8)
[2025-01-24 20:35] LABS: MONO % 36.3 % (2.0-8.0); PLATELET COUNT, AUTOMATED 79 10^3/uL (150-450)
[2025-01-24 20:39] LABS: CK-MB VALUE MASS < 1.0 NG/ML (<3.6)
[2025-01-24 20:41] LABS: CPK CREATINE PHOSPHOKINASE 45 U/L (46-171)
[2025-01-24] MEDS: IPRATROPIUM 0.5 MG/ALBUTEROL 2.5 MG INH SOL UD 3 ML NEB ONE ×2 (20:48)
[2025-01-24 20:57] LABS: CALCIUM LEVEL 6.6 MG/DL (8.3-10.6); CARBON DIOXIDE LEVEL 27 MMOL/L (20-31); CHLORIDE LEVEL 110 MMOL/L (98-107); CREATININE FOR GFR 0.86 MG/DL (0.70-1.30); GLOMERULAR FILTRATION RATE 88.1 (>42); MAGNESIUM LEVEL 1.4 MG/DL (1.8-2.4); POTASSIUM SERUM 2.8 MMOL/L (3.5-5.1); SODIUM LEVEL 147 MMOL/L (136-145)
[2025-01-24] MEDS: POTASSIUM CHLORIDE 10% LIQ 20MEQ/15ML UDC PO ONE (21:40)
[2025-01-24] MEDS: MAG SULF 1GM/100ML (MAG RUN) 1 GM in IV 1 EA IV ONE (21:41)
[2025-01-24] MEDS ORDERED: IPRATROPIUM 0.5 MG/ALBUTEROL 2.5 MG INH SOL UD 3 ML NEB PRN (22:30)
[2025-01-24] MEDS: DOXYCYCLINE HYCLATE 100 MG TABLET PO SCH (22:46)
[2025-01-24] MEDS: CALCIUM GLUCONATE 1,000 MG in DEXTROSE 5% (D5W) MINI-BAG PLU 100 ML IV ONE (22:48)
[2025-01-24] MEDS: IPRATROPIUM 0.5 MG/ALBUTEROL 2.5 MG INH SOL UD 3 ML NEB SCH (23:36)
[2025-01-25] VITALS (17 sets, daily range): BP systolic 103–127; BP diastolic 55–79; TEMP 96.7–98.2; O2SAT 92–97
[2025-01-25] MEDS: cefTRIAXone SOD 1 GM in DEXTROSE 5% (D5W) ADV/MINI-BAG 50 ML IV SCH (00:07)
[2025-01-25] MEDS: KCL 10MEQ/100ML SWI (KRUN) 10 MEQ in IV 1 EA IV SCH (00:42)
[2025-01-25] MEDS ORDERED: GLUCAGON INJ 1 MG VIAL SC PRN (02:45)
[2025-01-25] MEDS ORDERED: DEXTROSE 50% 50 ML SYRINGE IV PRN (02:45)
[2025-01-25] MEDS ORDERED: GLUCOSE 4 GM CHEW PO PRN (02:45)
[2025-01-25 06:22] LABS: PLATELET COUNT, AUTOMATED 80 10^3/uL (150-450)
[2025-01-25 06:50] LABS: CALCIUM LEVEL 9.2 MG/DL (8.3-10.6); CARBON DIOXIDE LEVEL 26.0 MMOL/L (20-31); CHLORIDE LEVEL 105.0 MMOL/L (98-107); CREATININE FOR GFR 0.89 MG/DL (0.70-1.30); GLOMERULAR FILTRATION RATE 87.2 (>42); POTASSIUM SERUM 4.3 MMOL/L (3.5-5.1); SODIUM LEVEL 144.0 MMOL/L (136-145)
[2025-01-25] MEDS: PANTOPRAZOLE 40MG TAB PO SCH (08:08)
[2025-01-25] MEDS: POTASSIUM CHLORIDE 10% LIQ 20MEQ/15ML UDC PO SCH (08:08)
[2025-01-25] MEDS: MAGNESIUM OXIDE 400 MG TAB PO SCH (08:09)
[2025-01-25] MEDS: INSULIN LISPRO (NovoLOG) PER UNIT SC SCH ×2 (08:10→20:26)
[2025-01-25] MEDS: ATORVASTATIN 20 MG TAB PO SCH (20:59)
[2025-01-25] MEDS: CLOPIDOGREL 75 MG TAB PO SCH (20:59)
[2025-01-25] MEDS: LOSARTAN 50 MG TABLET PO SCH (21:00)
[2025-01-26] VITALS (39 sets, daily range): BP systolic 98–117; BP diastolic 55–63; TEMP 96.9–97.6; O2SAT 85–98
[2025-01-26 05:57] LABS: PLATELET COUNT, AUTOMATED 89 10^3/uL (150-450)
[2025-01-26 06:07] LABS: ALT/SGPT 13.0 U/L (7.0-40); AST/SGOT 15.0 U/L (<34); CALCIUM LEVEL 8.8 MG/DL (8.3-10.6); CARBON DIOXIDE LEVEL 25.0 MMOL/L (20-31); CHLORIDE LEVEL 106.0 MMOL/L (98-107); CREATININE FOR GFR 1.08 MG/DL (0.70-1.30); GLOMERULAR FILTRATION RATE 69.8 (>42); POTASSIUM SERUM 4.7 MMOL/L (3.5-5.1); SODIUM LEVEL 143.0 MMOL/L (136-145)
[2025-01-26] MEDS: LanTUS (INSULIN GLARGINE INJ) 1 UNITS/0.01 ML SC SCH ×2 (09:13→20:12)
[2025-01-26 16:39] LABS: PHOSPHORUS LEVEL 2.6 MG/DL (2.4-5.1)
[2025-01-26 18:47] LABS: MAGNESIUM LEVEL 1.9 MG/DL (1.8-2.4)
[2025-01-27] VITALS (10 sets, daily range): BP systolic 97–106; BP diastolic 56–58; TEMP 97.4–97.7; O2SAT 89–100
[2025-01-27 06:01] LABS: PLATELET COUNT, AUTOMATED 116 10^3/uL (150-450)
[2025-01-27 06:36] LABS: ALT/SGPT 27.0 U/L (7.0-40); AST/SGOT 25.0 U/L (<34); CALCIUM LEVEL 8.7 MG/DL (8.3-10.6); CARBON DIOXIDE LEVEL 28.0 MMOL/L (20-31); CHLORIDE LEVEL 107.0 MMOL/L (98-107); CREATININE FOR GFR 1.12 MG/DL (0.70-1.30); GLOMERULAR FILTRATION RATE 66.8 (>42); POTASSIUM SERUM 4.2 MMOL/L (3.5-5.1); SODIUM LEVEL 141.0 MMOL/L (136-145)
[2025-01-27] MEDS: predniSONE 20 MG TAB PO SCH (08:52)
[2025-01-27] MEDS ORDERED: SYMB80INH INH (11:33)
[2025-01-27] MEDS ORDERED: PRED10TA2 PO (11:33)
[2025-01-27] MEDS ORDERED: VENTAER INH (11:33)
== END 2025-01-27 13:15 | disposition home or self-care (01) | DRG 191 ==
LOC: M ED 18:23 → M ED INP 18:24 → M PCU 01-25 13:23 → OBSVTOIN 01-25 17:28
PROVIDERS: ADMIT Student in an Organized Health Care Education/Training Program; ATTEND Internal Medicine Nephrology
DX: J44.1 Chronic obstructive pulmonary disease with (acute) exacerbation (principal); E87.0 Hyperosmolality and hypernatremia; I50.32 Chronic diastolic (congestive) heart failure; E87.6 Hypokalemia; B34.8 Other viral infections of unspecified site; E83.42 Hypomagnesemia; E83.51 Hypocalcemia; I25.10 Atherosclerotic heart disease of native coronary artery without angina pectoris; E11.51 Type 2 diabetes mellitus with diabetic peripheral angiopathy without gangrene; I11.0 Hypertensive heart disease with heart failure; F32.A Depression, unspecified; N40.1 Benign prostatic hyperplasia with lower urinary tract symptoms; R54 Age-related physical debility; F03.90 Unspecified dementia, unspecified severity, without behavioral disturbance, psychotic disturbance, mood disturbance, and anxiety; R32 Unspecified urinary incontinence; G89.29 Other chronic pain; Z95.1 Presence of aortocoronary bypass graft; Z87.891 Personal history of nicotine dependence; Z79.02 Long term (current) use of antithrombotics/antiplatelets; Z79.899 Other long term (current) drug therapy